=== PATIENT | male | born 1980 | race Caucasian/White ===

== ENCOUNTER 2016-07-02 10:16 | Emergency (ER) | payer OTHER ==
[~2016-07-02] VITALS: Ht 182.9 cm; Wt 72.0 kg
[~2016-07-02 10:16] MED LIST: HEARTBURN PO
[2016-07-02 10:18] VITALS: TEMP 36.5; Ht 182.9 cm; Wt 72.0 kg
[2016-07-02] MEDS ORDERED: HEARTBURN MED (10:54)
[2016-07-02] MEDS ORDERED: OMEP20CA9 PO (10:56)
[2016-07-02] MEDS ORDERED: SODIUM CHLORIDE 0.9% 1000ML 500 ML IV STA (10:58)
[2016-07-02] MEDS ORDERED: GI COCKTAIL PO STA (10:58)
[2016-07-02] MEDS ORDERED: RANITIDINE HCL 150 MG TAB PO STA (10:58)
--- NOTE | 2016-07-02 11:24 | EMERGENCY ROOM VISIT NOTE ---
History Report prepared by Judit: Bebeto Mills Under the Supervision of: Dr. Wilbert Garcia M.D. First contact with patient: 10:55 Chief Complaint: RESPIRATORY PROBLEMS Stated Complaint: SHAKING, TROUBLE BREATHING Nursing Triage Summary: pt here with sob, shaking that began an hour ago. pt just recently put on acid reflux med. pt does have hx of anxiety History of Present Illness The patient is a 36 year old male who presents to the Emergency Room with complaints of sudden respiratory problems that started around an hour ago. He says he was driving and suddenly his chest got cold and he became short of breath. The patient was also shaking. His symptoms subsided for a bit, and he went to [employer], but then the symptoms suddenly came back. At that time, he decided to drive here. The patient started shaking uncontrollably when in the ER parking lot, but that has since subsided a bit. He notes that he has had throat swelling for a long time as well as intermittent episodes of shakiness. The patient saw Dr. Gtz (ENT) around a month ago, and was diagnosed with acid reflux. The patient additionally notes a constant pressure in his chest. His symptoms are worsened when lying down. He was given a prescription medication and took it for 14 days as instructed on the bottle. The patient says that his throat swelling has persisted however. He has been back on the medication for the past 5 days. He denies any major current stresses. He also denies any coughing or fevers. The patient did have heart testing with a Holter monitor recently that came out normal. He has no personal history or family history of blood clots. The patient has not been on any long car or plane trips, or been through any recent surgeries. The patient does have Lyme Disease, and gets intermittent headaches. He had a bad headache yesterday. Source of History: patient Onset: Around an hour ago Position: other (global - respiratory problems) Timing: other (sudden) Associated Symptoms: + SOB, No cough, No fevers Note: Associated symptoms: Uncontrollable shaking. Constant pressure in chest and throat swelling for a while. Chest got cold during episode. Review of Systems See HPI for pertinent positives & negatives. A total of 10 systems reviewed and were otherwise negative. Past Medical & Surgical Medical Problems: (1) Acid reflux (2) Lyme disease Family History Diabetes mellitus Heart disease Hypertension Social History Smoking Status: Never Smoker Alcohol Use: occasionally Marital Status: in relationship Housing Status: lives with significant other Occupation Status: employed Current/Historical Medications Scheduled Omeprazole (Prilosec), 20 MG PO QAM Omeprazole (Prilosec), 20 MG PO DAILY Allergies Coded Allergies: No Known Allergies (Unverified , 07/02/16) Physical Exam Vital Signs Date Time Temp Pulse Resp B/P Pulse Ox O2 Delivery O2 Flow Rate FiO2 07/02/16 12:59 65 16 110/76 99 07/02/16 12:36 65 16 110/76 99 Room Air 07/02/16 12:03 67 07/02/16 11:29 68 18 118/73 97 Room Air 07/02/16 10:18 36.5 96 16 140/82 97 Physical Exam GENERAL: Patient is in no acute distress. HEENT: No acute trauma, normocephalic atraumatic, mucous membranes moist, no nasal congestion, no scleral icterus. No throat erythema or exudate. NECK: No stridor, no adenopathy, no meningismus, trachea is midline. LUNGS: Clear to auscultation bilaterally, no wheeze, no rhonchi, breath sounds equal. HEART: Without murmurs gallops or rubs, regular rate and rhythm. ABDOMEN: Soft, nontender, bowel sounds positive, no hernias, no peritonitis. EXTREMITIES: No cyanosis or edema, full range of motion of all the joints without pain or difficulty, no signs for acute trauma. NEUROLOGIC: Oriented x 3, no acute motor or sensory deficits, no focal weakness. SKIN: No rash, no jaundice, no diaphoresis. Medical Decision & Procedures ER Provider Diagnostic Interpretation: X-ray results as stated below per interpretation by me and the radiologist: CHEST ONE VIEW PORTABLE CLINICAL HISTORY: Respiratory distress COMPARISON STUDY: 11/06/2015 FINDINGS: The cardiac and mediastinal contours are normal. There is no evidence of focal pulmonary consolidation. There is no evidence of failure. No pleural effusions are visualized.[ IMPRESSION: No active disease in the chest. Electronically signed by: Tobin Cantrell M.D. 07/02/2016 11:26 AM Dictated Date/Time: 07/02/2016 11:26 AM Laboratory Results 07/02/16 11:28 Red Blood Count 5.36, Mean Corpuscular Volume 84.3, Mean Corpuscular Hemoglobin 28.9, Mean Corpuscular Hemoglobin Concent 34.3, Mean Platelet Volume 11.0, Neutrophils (%) (Auto) 67.4, Lymphocytes (%) (Auto) 21.5, Monocytes (%) (Auto) 9.4, Eosinophils (%) (Auto) 1.1, Basophils (%) (Auto) 0.3, Neutrophils # (Auto) 4.47, Lymphocytes # (Auto) 1.42, Monocytes # (Auto) 0.62, Eosinophils # (Auto) 0.07, Basophils # (Auto) 0.02 07/02/16 11:28 Test 07/02/16 11:28 07/02/16 11:34 White Blood Count 6.62 K/uL (4.8-10.8) Red Blood Count 5.36 M/uL (4.7-6.1) Hemoglobin 15.5 g/dL (14.0-18.0) Hematocrit 45.2 % (42-52) Mean Corpuscular Volume 84.3 fL (80-100) Mean Corpuscular Hemoglobin 28.9 pg (25-34) Mean Corpuscular Hemoglobin Concent 34.3 g/dl (32-36) Platelet Count 237 K/uL (130-400) Mean Platelet Volume 11.0 fL (7.4-10.4) Neutrophils (%) (Auto) 67.4 % Lymphocytes (%) (Auto) 21.5 % Monocytes (%) (Auto) 9.4 % Eosinophils (%) (Auto) 1.1 % Basophils (%) (Auto) 0.3 % Neutrophils # (Auto) 4.47 K/uL (1.4-6.5) Lymphocytes # (Auto) 1.42 K/uL (1.2-3.4) Monocytes # (Auto) 0.62 K/uL (0.11-0.59) Eosinophils # (Auto) 0.07 K/uL (0-0.5) Basophils # (Auto) 0.02 K/uL (0-0.2) RDW Standard Deviation 40.2 fL (36.4-46.3) RDW Coefficient of Variation 13.3 % (11.5-14.5) Immature Granulocyte % (Auto) 0.3 % Immature Granulocyte # (Auto) 0.02 K/uL (0.00-0.02) Anion Gap 9.0 mmol/L (3-11) Est Creatinine Clear Calc Drug Dose 81.5 ml/min Estimated GFR () 82.5 Estimated GFR (Non- 71.2 BUN/Creatinine Ratio 10.0 (10-20) Calcium Level 9.1 mg/dl (8.5-10.1) Troponin I < 0.015 ng/ml (0-0.045) Thyroid Stimulating Hormone (TSH) 1.790 uIu/ml (0.300-4.500) Bedside D-Dimer 68 ng/mlFEU (0-450) Laboratory results reviewed by me. Medications Administered Medications (Trade) Dose Ordered Sig/Estee Route Start Time Stop Time Status Last Admin Dose Admin Sodium Chloride (Nss 1000ml) 500 ml @ 999 mls/hr Q31M STAT IV 07/02/16 10:58 07/02/16 11:28 DC 07/02/16 11:37 999 MLS/HR Ranitidine HCl (zANTac TAB) 150 mg NOW STAT PO 07/02/16 10:58 07/02/16 11:05 DC 07/02/16 11:37 150 MG Al Hydroxide/Mg Hydroxide (Maalox Susp) 30 ml STK-MED ONCE .ROUTE 07/02/16 11:31 07/02/16 11:34 DC 07/02/16 11:40 30 ML Lidocaine HCl (Viscous Lidocaine 2% Soln) 20 ml STK-MED ONCE .ROUTE 07/02/16 11:31 07/02/16 11:34 DC 07/02/16 11:40 10 ML ECG Indication: chest pain Rate (beats per minute): 57 Rhythm: sinus bradycardia Findings: no acute ischemic change, no ectopy ED Course 1056: The patient was evaluated in room B8. A complete history and physical exam was performed. 1058: Ordered Zantac Tab 150 mg PO, GI Cocktail 24 ml PO, NSS 500 ml @ 999 mls/ hr IV. 1228: Reevaluated the patient and he is resting comfortably. Discussed results and discharge instructions: He verbalized understanding and agreement. The patient is ready for discharge. Medical Decision Differential diagnosis includes but is not limited to anxiety, reflux, gastritis , panic attack, pulmonary embolism, myocardial infarction, dysrhythmia, aortic dissection, pneumonia, viral illness. There is no leukocytosis or worrisome anemia. No significant electrolyte abnormality or kidney failure. The patient appears to be in a euthyroid state. Chest x-ray shows no pneumonia, mediastinal widening or CHF. EKG shows a sinus rhythm, no acute ischemia. Cardiac enzyme testing 1 is not consistent with acute cardiac injury. D-dimer testing is negative. With a negative d- dimer and my low suspicion for PE, I will stop the workup for this diagnosis. The patient likely has reflux. I also think there is a component of anxiety here. He just recently restarted his Prilosec. I will add Zantac. Patient was encouraged to follow with his doctors office and to return here if worsening. During the patient's ER stay, he received IV saline, oral Zantac and a GI cocktail. He is comfortable. Impression Primary Impression: Precordial chest pain Additional Impression: SOB (shortness of breath) Scribe Attestation The scribe's documentation has been prepared under my direction and personally reviewed by me in its entirety. I confirm that the note above accurately reflects all work, treatment, procedures, and medical decision making performed by me. Departure Information Dispostion Home / Self-Care Prescriptions Omeprazole (PRILOSEC) 20 Mg Capcr 20 MG PO DAILY, #30 CAP 3 Refills Prov: Wilbert Garcia M.D. 07/02/16 Referrals No Doctor, Assigned (PCP) Forms HOME CARE DOCUMENTATION FORM, IMPORTANT VISIT INFORMATION Patient Instructions My [facility] Additional Instructions use zantac 2x per day for next 2 weeks continue the prilosec all lab testing today was ok return if worsening Problem Qualifiers
--- NOTE | 2016-07-02 11:27 | DIAGNOSTIC IMAGING REPORT ---
CHEST ONE VIEW PORTABLE CLINICAL HISTORY: Respiratory distress COMPARISON STUDY: 11/06/2015 FINDINGS: The cardiac and mediastinal contours are normal. There is no evidence of focal pulmonary consolidation. There is no evidence of failure. No pleural effusions are visualized.[ IMPRESSION: No active disease in the chest. Electronically signed by: Tobin Cantrell M.D. 07/02/2016 11:26 AM Dictated Date/Time: 07/02/2016 11:26 AM
[2016-07-02] MEDS ORDERED: ALUMINUM/MAGNESIUM SUSP 30 ML UDC ONE (11:31)
[2016-07-02] MEDS ORDERED: LIDOCAINE HCL 2% VISC SOLN 20 ML UDC ONE (11:31)
[2016-07-02 11:42] LABS: BASO % 0.3 %; BASO ABS # 0.02 K/uL (0-0.2); COMPLETE YES; EOS % 1.1 %; HEMATOCRIT 45.2 % (42-52); IG% 0.3 %; LYMPH % 21.5 %; LYMPH ABS # 1.42 K/uL (1.2-3.4); MEAN CELL VOLUME 84.3 fL (80-100); MEAN CORPUSCULAR HEMOGLOBIN 28.9 pg (25-34); MEAN CORPUSCULAR HGB CONC 34.3 g/dl (32-36); MONO % 9.4 %; NEUT % 67.4 %; PLATELET COUNT 237 K/uL (130-400); RED BLOOD COUNT 5.36 M/uL (4.7-6.1); WHITE BLOOD COUNT 6.62 K/uL (4.8-10.8)
[2016-07-02 11:58] LABS: BLOOD UREA NITROGEN 13 mg/dl (7-18); CALCIUM 9.1 mg/dl (8.5-10.1); CARBON DIOXIDE 28 mmol/L (21-32); CHLORIDE 106 mmol/L (98-107); GLUCOSE 94 mg/dl (70-99); SODIUM 143 mmol/L (136-145)
[2016-07-02] MEDS ORDERED: PRLSR20 PO (12:42)
[2016-07-02 12:59] VITALS: BP 110/76; PULSE 65; O2SAT 99
== END 2016-07-02 13:00 | disposition home or self-care (01) ==
LOC: C.EDB 10:18
DX: R07.2 Precordial pain (principal); R06.02 Shortness of breath; R00.1 Bradycardia, unspecified; K21.9 Gastro-esophageal reflux disease without esophagitis; Z86.19 Personal history of other infectious and parasitic diseases; Z79.899 Other long term (current) drug therapy; Z83.3 Family history of diabetes mellitus; Z82.49 Family history of ischemic heart disease and other diseases of the circulatory system

== ENCOUNTER → 2016-09-25 | Outpatient (CLI) | payer OTHER ==
[~2016-09-25] MED LIST changes: -HEARTBURN PO; +OMEP20CA9 PO; +PRLSR20 PO
--- NOTE | 2016-10-13 14:32 | CODING QUERY NO DIAGNOSIS ---
TREATMENT RENDERED WITHOUT A DIAGNOSIS To promote full compliance with coding requirements relating to patient care, physician participation is requested in all cases of county director uncertainty. Please assist us with providing a diagnosis/symptom for the test(s) below: A diagnosis/symptom was not documented on your Order. A valid diagnosis/symptom is required to bill all insurances. Please remember that we are unable to code a diagnosis of rule out, probable, possible, questionable, or suspected. Tests that require a diagnosis: * VAS DEFERENS BIOPSY DIAGNOSIS: Provider Signature: Date: Thank you Nadege [place] [email or web address] Information Management Once completed, please kindly fax back to [phone] For questions please call [phone]
== END | disposition home or self-care (01) ==
LOC: C.PATHSPEC 17:43
PROVIDERS: ATTEND Urology
DX: Z30.2 Encounter for sterilization (principal)